=== PATIENT | male | born 2000 | race African-American/Black ===

== ENCOUNTER 2019-05-23 20:18 | Emergency (ER) | payer OTHER ==
[~2019-05-23] VITALS: Ht 185.4 cm; Wt 75.0 kg
[2019-05-23] MEDS ORDERED: KETOROLAC 60 MG/2 ML VIAL (J1885) IM ONE (21:45)
[2019-05-24 00:50] VITALS: BP 141/65
[2019-05-24] MEDS ORDERED: KETO10TAB PO (01:10)
--- NOTE | 2019-05-24 10:05 | REPVR ---
PROCEDURE INFORMATION: Exam: CT Head Without Contrast Exam date and time: 05/23/2019 9:17 PM Clinical history: 18 years old, male; Pain; Headache; Additional info: [facility] TECHNIQUE: Imaging protocol: Computed tomography of the head without contrast. Radiation optimization: All CT scans at this facility use at least one of these dose optimization techniques: automated exposure control; mA and/or kV adjustment per patient size (includes targeted exams where dose is matched to clinical indication); or iterative reconstruction. COMPARISON: No relevant prior studies available. FINDINGS: Brain: Normal. No hemorrhage. Unremarkable white matter. No mass effect. Ventricles: Normal. No ventriculomegaly. Bones/joints: Unremarkable. No acute fracture. Sinuses: Visualized sinuses are unremarkable. No fluid levels. Mastoid air cells: Visualized mastoid air cells are well aerated. Soft tissues: Unremarkable. IMPRESSION: No acute intracranial abnormality. Electronically signed by: Otto Mendenhall On 05/23/2019 22:11:19 PM
== END 2019-05-24 01:29 | disposition home or self-care (01) ==
LOC: M ED 20:18
DX: S16.1XXA Strain of muscle, fascia and tendon at neck level, initial encounter (principal); X58.XXXA Exposure to other specified factors, initial encounter; Y92.89 Other specified places as the place of occurrence of the external cause
CPT/HCPCS: 70450; 96372; 99283; J1885